=== PATIENT | male | born 2000 | race Two or more races ===

== ENCOUNTER 2020-09-27 09:30 | Emergency (ER) | payer OTHER ==
[~2020-09-27] VITALS: Ht 175.3 cm; Wt 68.0 kg
== END 2020-09-27 12:15 | disposition home or self-care (01) ==
LOC: ER 09:30
DX: S13.8XXA Sprain of joints and ligaments of other parts of neck, initial encounter (principal); S33.9XXA Sprain of unspecified parts of lumbar spine and pelvis, initial encounter; S23.3XXA Sprain of ligaments of thoracic spine, initial encounter; G44.309 Post-traumatic headache, unspecified, not intractable; M94.0 Chondrocostal junction syndrome [Tietze]; V49.88XA Car occupant (driver) (passenger) injured in other specified transport accidents, initial encounter; Y93.89 Activity, other specified; Y92.488 Other paved roadways as the place of occurrence of the external cause; Y99.8 Other external cause status